=== PATIENT | male | born 1930 | race Caucasian/White ===

== ENCOUNTER 2016-11-20 10:26 | Inpatient (IN) | payer MEDICARE, BC, OTHER ==
[2016-11-20] MEDS ORDERED: Sodium Chloride 0.9% 2.5 ML Syringe FLUSH PRN (10:38)
[2016-11-20] MEDS ORDERED: Sodium Chloride 0.9% 10 ML Syringe FLUSH PRN (10:38)
[2016-11-20] MEDS ORDERED: Ondansetron 4 MG/2 ML SDV IVPUSH ONE (10:41)
[2016-11-20] MEDS ORDERED: Ketorolac 30 MG/ML SDV IVPUSH ONE (10:41)
[2016-11-20] MEDS ORDERED: Sodium Chloride 0.9% 1,000 ML IV SCH (10:45)
--- NOTE | 2016-11-20 10:46 | EDM.PDOC ---
ED HPI GENERAL MEDICAL PROBLEM - General Chief Complaint: Genitourinary Problem Stated Complaint: AMBULANCE Time Seen by Provider: 11/20/16 10:35 Source of Information: Reports: Patient, Family History Limitations: Reports: No Limitations - History of Present Illness INITIAL COMMENTS - FREE TEXT/NARRATIVE: HISTORY AND PHYSICAL: History of present illness: Patient is an 86-year-old female that presents to the emergency room today via EMS with complaints of hematuria. Patient lives at home with multiple family members that come in and out check on him. Family members currently at the bedside stating that over the past week he has not been ambulatory and then resting in bed for most a day for the past week. Last night the patient reported he had blood in his urine. Today he has not been able to void and complaining of generalized abdominal pain and tenderness with palpation. Denies any fever or chills. Reports that his bowel movements are normal. I am able to view that the patient has seen Dr. Cronin in the past, although I am not able to review any of those records at this time. Reports that he has a history of Alzheimer's disease and BPH but otherwise unsure of his past medical history. Patient's baseline is ambulatory with standby assistance. Minimal verbal interaction. Review of systems: As per history of present illness and below otherwise all systems reviewed and negative. Past medical history: As per history of present illness and as reviewed below otherwise noncontributory. Surgical history: As per history of present illness and as reviewed below otherwise noncontributory. Social history: No reported history of drug or alcohol abuse. Family history: As per history of present illness and as reviewed below otherwise noncontributory. Physical exam: Gen.: Patient is resting on cot with his eyes closed. Able to speak in short simple sentences. Breathing is easy HEENT: Atraumatic, normocephalic, pupils reactive, negative for conjunctival pallor or scleral icterus, mucous membranes moist, throat clear, neck supple, nontender, trachea midline. Lungs: Clear to auscultation, breath sounds equal bilaterally, chest nontender. Heart: S1S2, regular, negative for clicks, rubs, or JVD. Abdomen: Semi-firm, nondistended, tender to palpation in all 4 quadrants. Negative for masses or hepatosplenomegaly. Negative for costovertebral tenderness. Pelvis: Stable nontender. Genitourinary: Deferred. Rectal: Deferred. Extremities: Atraumatic, negative for cords or calf pain. Neurovascular unremarkable. Neuro: Awake, alert, oriented. Cranial nerves II through XII unremarkable. Cerebellum unremarkable. Motor and sensory unremarkable throughout. Exam nonfocal. 1100-nursing staff performed bladder scanner and patient, revealed 64 mL's. Patient is incontinent of urine and will straight catheter patient for UA 1330- reviewed this case with Dr. Jamie Larkin. He has agreed to admit this patient for pneumonia. Family remains at bedside, they are aware of patient's admission and are agreeable. Diagnostics: CBC, CMP, troponin, EKG, bladder scanner, oxygen therapy Therapeutics: IV fluid, Zofran, Toradol Impression: Urinary retention Plan: 1. Admit to [facility] as inpatient for pneumonia Definitive disposition and diagnosis as appropriate pending reevaluation and review of above. Onset Date: 11/14/16 Duration: Week(s): (1) Location: Reports: Abdomen - Related Data Allergies Allergy/AdvReac Type Severity Reaction Status Date / Time No Known Allergies Allergy Verified 11/20/16 10:36 ED ROS GENERAL - Review of Systems Review Of Systems: ROS reveals no pertinent complaints other than HPI. (See dictation) ED EXAM, RENAL/ - Physical Exam Exam: See Below (See dictation) Course - Vital Signs Last Recorded V/S: Last Vital Signs Temp 37.1 C 11/20/16 10:29 Pulse 61 11/20/16 13:12 Resp 22 H 11/20/16 10:29 BP 122/60 11/20/16 13:12 Pulse Ox 92 L 11/20/16 13:12 - Orders/Labs/Meds Orders: Active Orders 24 hr Category Date Time Status Patient Status [ADT] Stat ADT 11/20/16 13:28 Active Communication Order [RC] STAT Care 11/20/16 10:38 Active EKG Documentation Completion [RC] STAT Care 11/20/16 10:41 Active Oxygen Therapy [RC] PRN Care 11/20/16 13:26 Active Oxygen Therapy, ED [RC] ASDIRECTED Care 11/20/16 10:41 Active VTE/DVT Education [RC] PER UNIT ROUTINE Care 11/20/16 13:26 Active Vital Signs [RC] Q4H Care 11/20/16 13:26 Active Regular Diet [DIET] Diet 11/20/16 Dinner Active Abdomen Pelvis wo Cont [CT] Stat Exams 11/20/16 12:16 Taken CBC WITH AUTO DIFF [HEME] AM Lab 11/21/16 05:11 Ordered COMPREHENSIVE METABOLIC PN,CMP [CHEM] AM Lab 11/21/16 05:11 Ordered CULTURE URINE [RM] Stat Lab 11/20/16 11:20 Received MAGNESIUM [CHEM] AM Lab 11/21/16 05:11 Ordered Acetaminophen [Tylenol] Med 11/20/16 13:26 Active 325 mg PO Q4H PRN Azithromycin [Zithromax] 500 mg Med 11/20/16 13:30 Active Sodium Chloride 0.9% [Normal Saline] 250 ml IV Q24H Ondansetron [Zofran ODT] Med 11/20/16 13:26 Active 4 mg PO Q4H PRN Sodium Chloride 0.9% [Normal Saline] 1,000 ml Med 11/20/16 10:45 Active IV ASDIRECTED Sodium Chloride 0.9% [Saline Flush] Med 11/20/16 10:38 Active 10 ml FLUSH ASDIRECTED PRN Sodium Chloride 0.9% [Saline Flush] Med 11/20/16 10:38 Active 2.5 ml FLUSH ASDIRECTED PRN Temazepam [Restoril] Med 11/20/16 13:26 Active 15 mg PO BEDTIME PRN cefTRIAXone [Rocephin in Dextrose,Iso-Osm 1 GM/50 ML] 1 Med 11/20/16 15:00 Active gm Premix Bag 1 bag IV Q24H Saline Lock Insert [OM.PC] Stat Oth 11/20/16 10:38 Ordered Resuscitation Status Routine Resus Stat 11/20/16 13:26 Ordered Medication Orders Acetaminophen (Tylenol) 325 mg PO Q4H PRN PRN Reason: Pain (Mild 1-3)/fever Sodium Chloride (Normal Saline) 1,000 mls @ 999 mls/hr IV ASDIRECTED [facility] Last Admin: 11/20/16 11:37 Dose: 999 mls/hr Azithromycin 500 mg/ Sodium (Chloride) 250 mls @ 250 mls/hr IV Q24H SAY Ceftriaxone Sodium/Dextrose 1 (gm/ Premix) 50 mls @ 100 mls/hr IV Q24H SAY Ondansetron HCl (Zofran Odt) 4 mg PO Q4H PRN PRN Reason: nausea, able to take PO Sodium Chloride (Saline Flush) 10 ml FLUSH ASDIRECTED PRN PRN Reason: Keep Vein Open Last Admin: 11/20/16 11:37 Dose: 10 ml Sodium Chloride (Saline Flush) 2.5 ml FLUSH ASDIRECTED PRN PRN Reason: Keep Vein Open Last Admin: 11/20/16 11:37 Dose: 2.5 ml Temazepam (Restoril) 15 mg PO BEDTIME PRN PRN Reason: Sleep Labs: Laboratory Tests 11/20/16 11/20/16 11/20/16 Range/Units 10:39 11:20 11:20 WBC 9.40 (4.0-11.0) K/uL RBC 4.97 (4.50-5.90) M/uL Hgb 10.5 L (13.0-17.0) g/dL Hct 34.8 L (38.0-50.0) % MCV 70.0 L (80.0-98.0) fL MCH 21.1 L (27.0-32.0) pg MCHC 30.2 L (31.0-37.0) g/dL RDW Std Deviation 44.7 (28.0-62.0) fl RDW Coeff of Joan 18 H (11.0-15.0) % Plt Count 442 H (150-400) K/uL MPV 9.60 (7.40-12.00) fL Nucleated RBC % 0.0 /100WBC Nucleated RBCs # 0 K/uL Sodium 144 (136-146) mmol/L Potassium 4.2 (3.5-5.1) mmol/L Chloride 106 (98-110) mmol/L Carbon Dioxide 18 L (21-31) mmol/L BUN 52 H (6.0-23.0) mg/dL Creatinine 1.8 H (0.6-1.5) mg/dL Est Cr Clr Drug Dosing 24.70 mL/min Estimated GFR (MDRD) 36.1 ml/min Glucose 160 H (60-110) mg/dL POC Glucose 179 H (60-110) mg/dL Calcium 10.1 (8.8-10.8) mg/dL Total Bilirubin 2.0 H (0.1-1.5) mg/dL AST 14 (5-40) IU/L ALT 10 (8-54) IU/L Alkaline Phosphatase 40 (40-150) Troponin I (0.0-0.29) NG/ML Total Protein 6.8 (6.0-8.0) g/dL Albumin 3.5 (3.4-4.8) g/dL Globulin 3.3 (2.0-3.5) g/dL Albumin/Globulin Ratio 1.1 L (1.3-2.8) Amylase 103 H (10-90) U/L Lipase < 9 (7-80) U/L Urine Color Urine Appearance Urine pH (5.0-8.0) Ur Specific [place] (1.001-1.035) Urine Protein (NEGATIVE) mg/dL Urine Glucose (UA) (NEGATIVE) mg/dL Urine Ketones (NEGATIVE) mg/dL Urine Occult Blood (NEGATIVE) Urine Nitrite (NEGATIVE) Urine Bilirubin (NEGATIVE) Urine Urobilinogen (<2.0) EU/dL Ur Leukocyte Esterase (NEGATIVE) Urine RBC (0-2/HPF) Urine WBC (0-5/HPF) Ur Epithelial Cells (NONE-FEW) Amorphous Sediment (NEGATIVE) Urine Bacteria (NEGATIVE) 11/20/16 11/20/16 Range/Units 11:20 11:20 WBC (4.0-11.0) K/uL RBC (4.50-5.90) M/uL Hgb (13.0-17.0) g/dL Hct (38.0-50.0) % MCV (80.0-98.0) fL MCH (27.0-32.0) pg MCHC (31.0-37.0) g/dL RDW Std Deviation (28.0-62.0) fl RDW Coeff of Joan (11.0-15.0) % Plt Count (150-400) K/uL MPV (7.40-12.00) fL Nucleated RBC % /100WBC Nucleated RBCs # K/uL Sodium (136-146) mmol/L Potassium (3.5-5.1) mmol/L Chloride (98-110) mmol/L Carbon Dioxide (21-31) mmol/L BUN (6.0-23.0) mg/dL Creatinine (0.6-1.5) mg/dL Est Cr Clr Drug Dosing mL/min Estimated GFR (MDRD) ml/min Glucose (60-110) mg/dL POC Glucose (60-110) mg/dL Calcium (8.8-10.8) mg/dL Total Bilirubin (0.1-1.5) mg/dL AST (5-40) IU/L ALT (8-54) IU/L Alkaline Phosphatase (40-150) Troponin I < 0.10 (0.0-0.29) NG/ML Total Protein (6.0-8.0) g/dL Albumin (3.4-4.8) g/dL Globulin (2.0-3.5) g/dL Albumin/Globulin Ratio (1.3-2.8) Amylase (10-90) U/L Lipase (7-80) U/L Urine Color YELLOW Urine Appearance CLEAR Urine pH 5.5 (5.0-8.0) Ur Specific [place] >= 1.030 (1.001-1.035) Urine Protein TRACE (NEGATIVE) mg/dL Urine Glucose (UA) NEGATIVE (NEGATIVE) mg/dL Urine Ketones NEGATIVE (NEGATIVE) mg/dL Urine Occult Blood SMALL H (NEGATIVE) Urine Nitrite NEGATIVE (NEGATIVE) Urine Bilirubin NEGATIVE (NEGATIVE) Urine Urobilinogen 0.2 (<2.0) EU/dL Ur Leukocyte Esterase NEGATIVE (NEGATIVE) Urine RBC 1-2 (0-2/HPF) Urine WBC 0-1 (0-5/HPF) Ur Epithelial Cells RARE (NONE-FEW) Amorphous Sediment FEW (NEGATIVE) Urine Bacteria FEW (NEGATIVE) Meds: Medications Generic Name Dose Route Start Last Admin Trade Name Freq PRN Reason Stop Dose Admin Acetaminophen 325 mg 11/20/16 13:26 Tylenol PO Q4H PRN Pain (Mild 1-3)/fever Sodium Chloride 1,000 mls @ 999 mls/hr 11/20/16 10:45 11/20/16 11:37 Normal Saline IV 999 mls/hr ASDIRECTED SAY Administration Azithromycin 500 mg/ Sodium 250 mls @ 250 mls/hr 11/20/16 13:30 Chloride IV Q24H SAY Ceftriaxone Sodium/Dextrose 1 50 mls @ 100 mls/hr 11/20/16 15:00 gm/ Premix IV Q24H SAY Ondansetron HCl 4 mg 11/20/16 13:26 Zofran Odt PO Q4H PRN nausea, able to take PO Sodium Chloride 10 ml 11/20/16 10:38 11/20/16 11:37 Saline Flush FLUSH 10 ml ASDIRECTED PRN Administration Keep Vein Open Sodium Chloride 2.5 ml 11/20/16 10:38 11/20/16 11:37 Saline Flush FLUSH 2.5 ml ASDIRECTED PRN Administration Keep Vein Open Temazepam 15 mg 11/20/16 13:26 Restoril PO BEDTIME PRN Sleep Discontinued Medications Generic Name Dose Route Start Last Admin Trade Name Freq PRN Reason Stop Dose Admin Ketorolac Tromethamine 30 mg 11/20/16 10:41 11/20/16 11:36 Toradol IVPUSH 11/20/16 10:42 30 mg ONETIME ONE Administration Ondansetron HCl 4 mg 11/20/16 10:41 11/20/16 11:37 Zofran IVPUSH 11/20/16 10:42 4 mg ONETIME ONE Administration Departure - Departure Time of Disposition: 13:48 Disposition: Admitted As Inpatient 68 Clinical Impression: Pneumonia Qualifiers: Pneumonia type: due to unspecified organism - Discharge Information Referrals: PCP,None [Primary Care Provider] - Forms: ED Department Discharge - My Orders Last 24 Hours: My Active Orders 11/20/16 10:38 Communication Order [RC] STAT Sodium Chloride 0.9% [Saline Flush] 10 ml FLUSH ASDIRECTED PRN Sodium Chloride 0.9% [Saline Flush] 2.5 ml FLUSH ASDIRECTED PRN Saline Lock Insert [OM.PC] Stat 11/20/16 10:41 EKG Documentation Completion [RC] STAT Oxygen Therapy, ED [RC] ASDIRECTED 11/20/16 10:45 Sodium Chloride 0.9% [Normal Saline] 1,000 ml IV ASDIRECTED 11/20/16 11:20 CULTURE URINE [RM] Stat 11/20/16 12:16 Abdomen Pelvis wo Cont [CT] Stat 11/20/16 13:28 Patient Status [ADT] Stat - Assessment/Plan Last 24 Hours: My Active Orders 11/20/16 10:38 Communication Order [RC] STAT Sodium Chloride 0.9% [Saline Flush] 10 ml FLUSH ASDIRECTED PRN Sodium Chloride 0.9% [Saline Flush] 2.5 ml FLUSH ASDIRECTED PRN Saline Lock Insert [OM.PC] Stat 11/20/16 10:41 EKG Documentation Completion [RC] STAT Oxygen Therapy, ED [RC] ASDIRECTED 11/20/16 10:45 Sodium Chloride 0.9% [Normal Saline] 1,000 ml IV ASDIRECTED 11/20/16 11:20 CULTURE URINE [RM] Stat 11/20/16 12:16 Abdomen Pelvis wo Cont [CT] Stat 11/20/16 13:28 Patient Status [ADT] Stat
[2016-11-20 12:01] LABS: CHLORIDE,CL 106 mmol/L (98-110); SODIUM,NA 144 mmol/L (136-146)
--- NOTE | 2016-11-20 12:01 | CR ---
EXAMINATION: Portable chest radiograph. HISTORY: Low O2 sats. FINDINGS: The trachea is midline. The cardiomediastinal silhouette is within normal limits. Mild interstitial p rominence bilaterally with a prominence of the central pulmonary vasculature. No pneumothorax or pleu ral effusion. Osseous structures appear unremarkable. IMPRESSION: Central pulmonary vasculature prominence, likely secondary to CHF.
[2016-11-20] MEDS ORDERED: Ondansetron 4 MG Tab.DIS PO PRN (13:26)
[2016-11-20] MEDS ORDERED: Temazepam 15 MG Cap PO PRN (13:26)
[2016-11-20] MEDS ORDERED: Acetaminophen 325 MG Tab PO PRN (13:26)
[2016-11-20] MEDS ORDERED: cefTRIAXone 1,000 MG VIAL IVPUSH SCH (13:30)
[2016-11-20] MEDS ORDERED: Azithromycin 500 MG in Sodium Chloride 0.9% 250 ML IV SCH (13:30)
--- NOTE | 2016-11-20 13:54 | CT ---
CT of the abdomen and pelvis without contrast. HISTORY: Pain TECHNIQUE: Axial CT images were obtained of the abdomen and pelvis without contrast. Coronal and sagi ttal reconstructions obtained. FINDINGS: Mild bibasilar infiltrate, right greater than left. Moderate pericardial effusion. The liver, spleen, adrenal glands, and pancreas appear unremarkable for noncontrast examination. The gallbladder appears normal. There is no bulky retroperitoneal lymphadenopathy. No abdominal ascites. The stomach is distended with fluid within the distal esophagus. Small hiatal hernia. There are no calcifications noted within the kidneys or along the courses of the ureters bilaterally. Small left renal cyst noted. Multiple dilated loops of small bowel are noted the exact transition point is not clear, there is how ever a right inguinal hernia containing small bowel. Gas, stool and, possible contrast is noted withi n the colon. There is a Bocanegra catheter within the bladder. Free air is noted. The visualized osseous structures appear osteopenic. No suspicious osseous abnormalities identified. IMPRESSION: 1. Markedly dilated loops of proximal small bowel consistent with a mechanical small bowel obstructio n. Small pockets of free air are noted to suggest perforation. 2. The transition point is not definitively identified, there is a small right inguinal hernia contai praveena distal ileum, however more proximal loops of small bowel are decompressed prior to this. 3. Consolidation within the lung bases, likely atelectasis however pneumonia is not excluded. 4. Moderate pericardial effusion.
[2016-11-20] MEDS ORDERED: cefTRIAXone 1 GM in Premix Bag 1 BAG IV SCH (15:00)
--- NOTE | 2016-11-20 15:09 | PCM.HP ---
H&P History of Present Illness - General Date of Service: 11/20/16 Admit Problem/Dx: Admission Diagnosis/Problem Admission Diagnosis/Problem Pneumonia Source of Information: Family, Provider - History of Present Illness Initial Comments - Free Text/Narative: He presented to the ED today with generalized weakness. He was noted to have signs of bowel perforation on CT scanning. I spoke with his two sons who state that he does not go to the doctor regularly. He lives at home. Now he is no longer ambulatory. He has not been eating. They state that he has dementia. - Related Data Allergies/Adverse Reactions: Allergies Allergy/AdvReac Type Severity Reaction Status Date / Time No Known Allergies Allergy Verified 11/20/16 10:36 Past Medical History HEENT History: Reports: Cataract Cardiovascular History: Reports: None. Denies: CAD, Heart Failure, Hypertension , [place] Respiratory History: Denies: COPD Gastrointestinal History: Denies: Cirrhosis Genitourinary History: Reports: Renal Calculus Other Genitourinary History: benign prostatic hypertrophy Musculoskeletal History: Reports: Back Pain, Chronic Other Neuro History: Dementia Endocrine/Metabolic History: Denies: [place]lin[place]'s Disease, Diabetes, Type I, Diabetes, Type II Oncologic (Cancer) History: Reports: None - Past Surgical History HEENT Surgical History: Reports: Cataract Surgery, LASIK Social & Family History - Family History Family Medical History: Noncontributory - Tobacco Use Smoking Status *Q: Former Smoker Used Tobacco, but Quit: Yes Month Tobacco Last Used: "40 years" - Caffeine Use Caffeine Use: Reports: None - Recreational Drug Use Recreational Drug Use: No H&P Review of Systems - Review of Systems: Review Of Systems: See Below General: Denies: Fever Pulmonary: Denies: Shortness of Breath, Hemoptysis Cardiovascular: Denies: Chest Pain Gastrointestinal: Reports: Abdominal Pain, Anorexia. Denies: Black Stool, Bloody Stool, Hematemesis, Vomiting Genitourinary: Reports: Other (has a gaines placed whilst in the ED) Psychiatric: Reports: Confusion Exam - Exam Exam: See Below - Vital Signs Vital Signs: Last Vital Signs Temp 98.7 F 11/20/16 10:29 Pulse 61 11/20/16 13:12 Resp 22 H 11/20/16 10:29 BP 122/60 11/20/16 13:12 Pulse Ox 92 L 11/20/16 13:12 Weight: 57.153 kg - Exam Physical Exam Comments:: His eyes are open he mutters some words that are not understandable lungs CTA heart RRR abdomen: soft with diffuse tenderness greatest left side no ankle edema diffuse rigidity reddened presacral area. - Patient Data Lab Results Last 24 hrs: Laboratory Results - last 24 hr 11/20/16 11/20/16 11/20/16 Range/Units 10:39 11:20 11:20 WBC 9.40 (4.0-11.0) K/uL RBC 4.97 (4.50-5.90) M/uL Hgb 10.5 L (13.0-17.0) g/dL Hct 34.8 L (38.0-50.0) % MCV 70.0 L (80.0-98.0) fL MCH 21.1 L (27.0-32.0) pg MCHC 30.2 L (31.0-37.0) g/dL RDW Std Deviation 44.7 (28.0-62.0) fl RDW Coeff of Joan 18 H (11.0-15.0) % Plt Count 442 H (150-400) K/uL MPV 9.60 (7.40-12.00) fL Nucleated RBC % 0.0 /100WBC Nucleated RBCs # 0 K/uL Sodium 144 (136-146) mmol/L Potassium 4.2 (3.5-5.1) mmol/L Chloride 106 (98-110) mmol/L Carbon Dioxide 18 L (21-31) mmol/L BUN 52 H (6.0-23.0) mg/dL Creatinine 1.8 H (0.6-1.5) mg/dL Est Cr Clr Drug Dosing 24.70 mL/min Estimated GFR (MDRD) 36.1 ml/min Glucose 160 H (60-110) mg/dL POC Glucose 179 H (60-110) mg/dL Calcium 10.1 (8.8-10.8) mg/dL Total Bilirubin 2.0 H (0.1-1.5) mg/dL AST 14 (5-40) IU/L ALT 10 (8-54) IU/L Alkaline Phosphatase 40 (40-150) Troponin I (0.0-0.29) NG/ML Total Protein 6.8 (6.0-8.0) g/dL Albumin 3.5 (3.4-4.8) g/dL Globulin 3.3 (2.0-3.5) g/dL Albumin/Globulin Ratio 1.1 L (1.3-2.8) Amylase 103 H (10-90) U/L Lipase < 9 (7-80) U/L Urine Color Urine Appearance Urine pH (5.0-8.0) Ur Specific [place] (1.001-1.035) Urine Protein (NEGATIVE) mg/dL Urine Glucose (UA) (NEGATIVE) mg/dL Urine Ketones (NEGATIVE) mg/dL Urine Occult Blood (NEGATIVE) Urine Nitrite (NEGATIVE) Urine Bilirubin (NEGATIVE) Urine Urobilinogen (<2.0) EU/dL Ur Leukocyte Esterase (NEGATIVE) Urine RBC (0-2/HPF) Urine WBC (0-5/HPF) Ur Epithelial Cells (NONE-FEW) Amorphous Sediment (NEGATIVE) Urine Bacteria (NEGATIVE) 11/20/16 11/20/16 Range/Units 11:20 11:20 WBC (4.0-11.0) K/uL RBC (4.50-5.90) M/uL Hgb (13.0-17.0) g/dL Hct (38.0-50.0) % MCV (80.0-98.0) fL MCH (27.0-32.0) pg MCHC (31.0-37.0) g/dL RDW Std Deviation (28.0-62.0) fl RDW Coeff of Joan (11.0-15.0) % Plt Count (150-400) K/uL MPV (7.40-12.00) fL Nucleated RBC % /100WBC Nucleated RBCs # K/uL Sodium (136-146) mmol/L Potassium (3.5-5.1) mmol/L Chloride (98-110) mmol/L Carbon Dioxide (21-31) mmol/L BUN (6.0-23.0) mg/dL Creatinine (0.6-1.5) mg/dL Est Cr Clr Drug Dosing mL/min Estimated GFR (MDRD) ml/min Glucose (60-110) mg/dL POC Glucose (60-110) mg/dL Calcium (8.8-10.8) mg/dL Total Bilirubin (0.1-1.5) mg/dL AST (5-40) IU/L ALT (8-54) IU/L Alkaline Phosphatase (40-150) Troponin I < 0.10 (0.0-0.29) NG/ML Total Protein (6.0-8.0) g/dL Albumin (3.4-4.8) g/dL Globulin (2.0-3.5) g/dL Albumin/Globulin Ratio (1.3-2.8) Amylase (10-90) U/L Lipase (7-80) U/L Urine Color YELLOW Urine Appearance CLEAR Urine pH 5.5 (5.0-8.0) Ur Specific [place] >= 1.030 (1.001-1.035) Urine Protein TRACE (NEGATIVE) mg/dL Urine Glucose (UA) NEGATIVE (NEGATIVE) mg/dL Urine Ketones NEGATIVE (NEGATIVE) mg/dL Urine Occult Blood SMALL H (NEGATIVE) Urine Nitrite NEGATIVE (NEGATIVE) Urine Bilirubin NEGATIVE (NEGATIVE) Urine Urobilinogen 0.2 (<2.0) EU/dL Ur Leukocyte Esterase NEGATIVE (NEGATIVE) Urine RBC 1-2 (0-2/HPF) Urine WBC 0-1 (0-5/HPF) Ur Epithelial Cells RARE (NONE-FEW) Amorphous Sediment FEW (NEGATIVE) Urine Bacteria FEW (NEGATIVE) Result Diagrams: 11/20/16 11:20 11/20/16 11:20 *Q Meaningful Use (ADM) - VTE *Q VTE Criteria *Q: - Stroke *Q Stroke Criteria *Q: - AMI *Q AMI Criteria *Q: - Problem List (1) SBO (small bowel obstruction) SNOMED Code(s): 414607487 ICD Code: K56.69 - OTHER INTESTINAL OBSTRUCTION Status: Acute Current Visit: Yes (2) Free intraperitoneal air SNOMED Code(s): 39964239 ICD Code: K66.8 - OTHER SPECIFIED DISORDERS OF PERITONEUM Status: Acute Current Visit: Yes (3) Dementia SNOMED Code(s): 76814580 ICD Code: F03.90 - UNSPECIFIED DEMENTIA WITHOUT BEHAVIORAL DISTURBANCE Status: Acute Current Visit: Yes (4) Sacral pressure sore Status: Acute Current Visit: Yes (5) Failure to thrive SNOMED Code(s): 64215184 ICD Code: [id number] - Status: Acute Current Visit: Yes Problem List Initiated/Reviewed/Updated: Yes Orders Last 24hrs: Active Orders 24 hr Category Date Time Status Patient Status [ADT] Stat ADT 11/20/16 13:28 Active Communication Order [RC] STAT Care 11/20/16 10:38 Active EKG Documentation Completion [RC] STAT Care 11/20/16 10:41 Active Oxygen Therapy [RC] PRN Care 11/20/16 13:26 Active Oxygen Therapy, ED [RC] ASDIRECTED Care 11/20/16 10:41 Active VTE/DVT Education [RC] PER UNIT ROUTINE Care 11/20/16 13:26 Active Vital Signs [RC] Q4H Care 11/20/16 13:26 Active Regular Diet [DIET] Diet 11/20/16 Dinner Active CBC WITH AUTO DIFF [HEME] AM Lab 11/21/16 05:11 Ordered COMPREHENSIVE METABOLIC PN,CMP [CHEM] AM Lab 11/21/16 05:11 Ordered CULTURE URINE [RM] Stat Lab 11/20/16 11:20 Received MAGNESIUM [CHEM] AM Lab 11/21/16 05:11 Ordered Acetaminophen [Tylenol] Med 11/20/16 13:26 Active 325 mg PO Q4H PRN Azithromycin [Zithromax] 500 mg Med 11/20/16 13:30 Active Sodium Chloride 0.9% [Normal Saline] 250 ml IV Q24H Ondansetron [Zofran ODT] Med 11/20/16 13:26 Active 4 mg PO Q4H PRN Sodium Chloride 0.9% [Normal Saline] 1,000 ml Med 11/20/16 10:45 Active IV ASDIRECTED Sodium Chloride 0.9% [Saline Flush] Med 11/20/16 10:38 Active 10 ml FLUSH ASDIRECTED PRN Sodium Chloride 0.9% [Saline Flush] Med 11/20/16 10:38 Active 2.5 ml FLUSH ASDIRECTED PRN Temazepam [Restoril] Med 11/20/16 13:26 Active 15 mg PO BEDTIME PRN cefTRIAXone [Rocephin in Dextrose,Iso-Osm 1 GM/50 ML] 1 Med 11/20/16 15:00 Active gm Premix Bag 1 bag IV Q24H Saline Lock Insert [OM.PC] Stat Oth 11/20/16 10:38 Ordered Resuscitation Status Routine Resus Stat 11/20/16 13:26 Ordered Medication Orders Acetaminophen (Tylenol) 325 mg PO Q4H PRN PRN Reason: Pain (Mild 1-3)/fever Sodium Chloride (Normal Saline) 1,000 mls @ 999 mls/hr IV ASDIRECTED SAY Last Admin: 11/20/16 11:37 Dose: 999 mls/hr Azithromycin 500 mg/ Sodium (Chloride) 250 mls @ 250 mls/hr IV Q24H SAY Ceftriaxone Sodium/Dextrose 1 (gm/ Premix) 50 mls @ 100 mls/hr IV Q24H SAY Ondansetron HCl (Zofran Odt) 4 mg PO Q4H PRN PRN Reason: nausea, able to take PO Sodium Chloride (Saline Flush) 10 ml FLUSH ASDIRECTED PRN PRN Reason: Keep Vein Open Last Admin: 11/20/16 11:37 Dose: 10 ml Sodium Chloride (Saline Flush) 2.5 ml FLUSH ASDIRECTED PRN PRN Reason: Keep Vein Open Last Admin: 11/20/16 11:37 Dose: 2.5 ml Temazepam (Restoril) 15 mg PO BEDTIME PRN PRN Reason: Sleep Assessment/Plan Comment:: family members are not able at this time to care for him at home adequately Will admit for comfort measures. likely imminent comfort measures as per discussion with family ( two sons) no antibiotics Jamie Larkin MD
[2016-11-20] MEDS ORDERED: Ondansetron 4 MG/2 ML SDV IVPUSH PRN (15:12)
[2016-11-20] MEDS ORDERED: Morphine Oral Concentrate 20 MG/ML 30 ML Bottle SL PRN (15:19)
[2016-11-21 10:01] VITALS: BP 60/30
--- NOTE | 2016-11-21 11:22 | PCM.SN ---
- Free Text/Narrative Note: patient is receiving palliative care/end of life care. Jamie Larkin MD
--- NOTE | 2016-11-21 12:19 | PCM.DCSUM1 ---
Discharge Summary - Hospital Course Brief History: He was diagnosed with small bowel obstruction with perforation and free intraperitoneal air. - Discharge Data Discharge Date: 11/21/16 Discharge Disposition: 20 Condition: Serious - Discharge Diagnosis/Problem(s) (1) SBO (small bowel obstruction) SNOMED Code(s): 661070903 ICD Code: K56.69 - OTHER INTESTINAL OBSTRUCTION Status: Acute Current Visit: Yes (2) Free intraperitoneal air SNOMED Code(s): 07737323 ICD Code: K66.8 - OTHER SPECIFIED DISORDERS OF PERITONEUM Status: Acute Current Visit: Yes (3) Dementia SNOMED Code(s): 31736952 ICD Code: F03.90 - UNSPECIFIED DEMENTIA WITHOUT BEHAVIORAL DISTURBANCE Status: Acute Current Visit: Yes (4) Sacral pressure sore Status: Acute Current Visit: Yes (5) Failure to thrive SNOMED Code(s): 83880234 ICD Code: [id number] - Status: Acute Current Visit: Yes - Patient Summary/Data Hospital Course: I spoke on admission regarding his poor prognosis and it was decided to proceed with palliative/end of life care. On the morning of 11/21/2016 I was called to the bedside as he was unresponsive. He was pulseless and apneic with and unresponsive with no cardiac activity on auscultation. he was declared on 11/21/2016 at 11 45 am Cause of ; peritonitis of 3 days duration secondary to small bowel obstruction and perforation of 3 days duration other contributing factors: chronic degenerative dementia Jamie Larkin MD - Discharge Plan Forms: ED Department Discharge Referrals: PCP,None [Primary Care Provider] - - Patient Data Vitals - Most Recent: Last Vital Signs Temp 97 F 11/21/16 09:59 Pulse 39 L 11/21/16 09:59 Resp 40 H 11/21/16 09:59 BP 60/30 L 11/21/16 09:59 Pulse Ox 80 L 11/21/16 09:59 Weight - Most Recent: 57 kg I&O - Last 24 hours: Intake & Output 11/20/16 11/21/16 11/21/16 22:59 06:59 14:59 Intake Total 40 Output Total 40 Balance 0 Med Orders - Current: Current Medications Morphine Sulfate (Morphine 20 Mg/Ml Soln) 5 mg SL Q1H PRN PRN Reason: Pain Last Admin: 11/21/16 09:42 Dose: 5 mg Ondansetron HCl (Zofran) 4 mg IVPUSH Q4H PRN PRN Reason: Vomiting Sodium Chloride (Saline Flush) 10 ml FLUSH ASDIRECTED PRN PRN Reason: Keep Vein Open Last Admin: 11/20/16 11:37 Dose: 10 ml Sodium Chloride (Saline Flush) 2.5 ml FLUSH ASDIRECTED PRN PRN Reason: Keep Vein Open Last Admin: 11/20/16 11:37 Dose: 2.5 ml Discontinued Medications Acetaminophen (Tylenol) 325 mg PO Q4H PRN PRN Reason: Pain (Mild 1-3)/fever Sodium Chloride (Normal Saline) 1,000 mls @ 999 mls/hr IV ASDIRECTED [facility] Last Admin: 11/20/16 11:37 Dose: 999 mls/hr Azithromycin 500 mg/ Sodium (Chloride) 250 mls @ 250 mls/hr IV Q24H [facility] Last Admin: 11/20/16 18:15 Dose: Not Given Ceftriaxone Sodium/Dextrose 1 (gm/ Premix) 50 mls @ 100 mls/hr IV Q24H [facility] Last Admin: 11/20/16 18:16 Dose: Not Given Ketorolac Tromethamine (Toradol) 30 mg IVPUSH ONETIME ONE Stop: 11/20/16 10:42 Last Admin: 11/20/16 11:36 Dose: 30 mg Ondansetron HCl (Zofran) 4 mg IVPUSH ONETIME ONE Stop: 11/20/16 10:42 Last Admin: 11/20/16 11:37 Dose: 4 mg Ondansetron HCl (Zofran Odt) 4 mg PO Q4H PRN PRN Reason: nausea, able to take PO Temazepam (Restoril) 15 mg PO BEDTIME PRN PRN Reason: Sleep *Q Meaningful Use (DIS) - VTE *Q VTE Criteria *Q: - Stroke *Q Stroke Criteria *Q: - AMI *Q AMI Criteria *Q:
== END 2016-11-21 13:09 | disposition expired | DRG 393 ==
LOC: MW.ED 10:26 → MW.MS 13:26
PROVIDERS: ADMIT Family Medicine; ATTEND Family Medicine
DX: K63.1 Perforation of intestine (nontraumatic) (principal); K65.9 Peritonitis, unspecified; K56.60 Unspecified intestinal obstruction; R33.9 Retention of urine, unspecified; R10.9 Unspecified abdominal pain; L89.159 Pressure ulcer of sacral region, unspecified stage; F03.90 Unspecified dementia, unspecified severity, without behavioral disturbance, psychotic disturbance, mood disturbance, and anxiety; R62.7 Adult failure to thrive; Z66 Do not resuscitate; Z87.891 Personal history of nicotine dependence; Z51.5 Encounter for palliative care
CPT/HCPCS: 71010; 74176; 80053; 81001; 82150; 82962; 83690; 84484; 85027; 87086; 93005; 96361; 96374; 96375; 99285; J1885; J2405; J7040; 99284; A9270-GY; J0456; J7050